=== PATIENT | female | born 1975 ===

== ENCOUNTER 2019-10-20 09:05 | Outpatient (CLI) | payer OTHER | END 2019-10-20 09:07 | disposition home or self-care (01) | LOC: TOM 09:05 | PROVIDERS: ATTEND Urology | DX: N20.1 Calculus of ureter (principal) ==

== ENCOUNTER 2020-12-01 07:23 | Outpatient (CLI) | payer OTHER | END 2020-12-01 07:50 | disposition home or self-care (01) | LOC: MRI 07:23 | PROVIDERS: ATTEND Urology | DX: N28.89 Other specified disorders of kidney and ureter (principal); R10.84 Generalized abdominal pain | CPT/HCPCS: 72197; 74183 ==

== ENCOUNTER 2021-12-14 07:12 | Outpatient (CLI) | payer OTHER | END 2021-12-14 07:32 | disposition home or self-care (01) | LOC: MRI 07:12 | PROVIDERS: ATTEND Urology | DX: R31.0 Gross hematuria (principal) | CPT/HCPCS: 72197; 74183 ==